=== PATIENT | female | born 1960 | race Hispanic/Latino ===

== ENCOUNTER → 2018-09-22 | Outpatient (CLI) | payer OTHER | LOC: MAMMO 09:24 | PROVIDERS: ATTEND Internal Medicine | DX: Z12.31 Encounter for screening mammogram for malignant neoplasm of breast (principal) | CPT/HCPCS: 77067 ==

== ENCOUNTER → 2019-06-28 | Outpatient (CLI) | payer OTHER ==
--- NOTE | 2019-06-28 14:01 | Diagnostic Imaging Report ---
EXAMINATION: SP LUMBAR, COMPLETE MIN 4VW INDICATION: Back pain COMPARISON: None FINDINGS: AP, lateral and oblique images of the lumbar spine were obtained. No compression fracture. Vertebral body heights are well maintained. Alignment is anatomic. Mild multilevel degenerative changes of the lower lumbar spine. 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 Phleboliths in the pelvis. IMPRESSION: No compression fracture. Mild multilevel degenerative changes. 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 Signed by: Christiano Vo MD on 06/28/2019 1:58 PM
== END ==
LOC: RAD 11:10
PROVIDERS: ATTEND Internal Medicine
DX: M54.5 Low back pain (principal)
CPT/HCPCS: 72110